=== PATIENT | female | born 1995 | race Caucasian/White ===

== ENCOUNTER 2016-08-24 12:37 | Emergency (ER) | payer OTHER ==
[2016-08-24 13:40] VITALS: BP 130/81
--- NOTE | 2016-08-24 14:07 | UC ---
UC General HPI - HPI Summary HPI Summary: patient has been having sinus headaches, is starting to get dizzy when standing. developed a fever and cough. - History of Current Complaint Chief Complaint: UCGeneralIllness Stated Complaint: FLU SXS Time Seen by Provider: 08/24/16 13:53 Hx Obtained From: Patient Onset/Duration: Sudden Onset, Lasting Weeks Timing: Constant Onset Severity: Moderate Current Severity: Severe Pain Intensity: 7 Associated Signs & Symptoms: Positive: Cough, Dizziness, Fever, Headache, Weakness - Allergy/Home Medications Allergies/Adverse Reactions: Allergies Allergy/AdvReac Type Severity Reaction Status Date / Time Penicillins Allergy Unknown Verified 08/24/16 13:37 Reaction Details Home Medications: Home Medications Desogestrel-Ethinyl Estradiol [Caziant 0.1/0.125/0.15 -0.025 mg] 1 tab PO DAILY 08/24/16 [History Confirmed 08/24/16] PMH/Surg Hx/FS Hx/Imm Hx Previously Healthy: Yes - Surgical History Surgical History: None - Family History Known Family History: Negative: Hypertension - Social History Alcohol Use: Weekly Substance Use Type: None Smoking Status (MU): Never Smoked Tobacco - Immunization History Most Recent Influenza Vaccination: Not the Season Review of Systems Constitutional: Fever, Chills, Fatigue Skin: Negative Eyes: Negative ENT: Sore Throat, Ear Ache, Nasal Discharge Respiratory: Shortness Of Breath, Cough Cardiovascular: Negative Gastrointestinal: Negative Genitourinary: Negative Motor: Negative Neurovascular: Negative Musculoskeletal: Myalgia Neurological: Headache Psychological: Negative All Other Systems Reviewed And Are Negative: Yes Physical Exam Triage Information Reviewed: Yes Appearance: Well-Nourished, Ill-Appearing, Pain Distress Vital Signs: Initial Vital Signs Temp 98.3 F 08/24/16 13:34 Pulse 108 08/24/16 13:34 Resp 16 08/24/16 13:34 BP 130/81 08/24/16 13:34 Pulse Ox 100 08/24/16 13:34 Vital Signs Reviewed: Yes Eye Exam: Normal Eyes: Positive: Conjunctiva Clear ENT: Positive: Hearing grossly normal, Pharyngeal erythema, Nasal congestion, Nasal drainage, TM bulging, TM dull Dental Exam: Normal Neck exam: Normal Neck: Positive: Supple, Nontender, No Lymphadenopathy Respiratory Exam: Normal Respiratory: Positive: Chest non-tender, Lungs clear, Normal breath sounds Cardiovascular Exam: Normal Cardiovascular: Positive: No Murmur, Pulses Normal, Tachycardia Abdominal Exam: Normal Abdomen Description: Positive: Nontender, No Organomegaly, Soft Bowel Sounds: Positive: Present Musculoskeletal Exam: Normal Musculoskeletal: Positive: Strength Intact, ROM Intact, No Edema Neurological Exam: Normal Neurological: Positive: Alert, Muscle Tone Normal Psychological Exam: Normal Skin Exam: Normal Course/Dx - Course Course Of Treatment: hx obtained, exam performed, medications prescribed for sinusitis and nausea - Differential Dx - Multi-Symptom Provider Diagnoses: sinustitis. headache. nasuea Discharge - Discharge Plan Condition: Stable Disposition: HOME Prescriptions: Azithromyxin DEONNA (NF) [Z-Deonna (Zithromax) 250 mg tabs #6] 2 tab PO .TODAY, THEN 1 DAILY #6 tab Promethazine TAB* [Phenergan TAB*] 25 mg PO Q8H PRN #18 tab PRN Reason: Nausea Patient Education Materials: Sinusitis (ED) Additional Instructions: take the medication as prescribed. Increase fluid intake and get plenty of rest. Eat as tolerated.
== END 2016-08-24 14:11 | disposition home or self-care (01) ==
LOC: UCCORT 12:37
DX: J32.9 Chronic sinusitis, unspecified (principal); R11.0 Nausea; R50.9 Fever, unspecified; R05 Cough; Z88.0 Allergy status to penicillin
CPT/HCPCS: 99202; G0463